=== PATIENT | female | born 2000 | race Caucasian/White ===

== ENCOUNTER 2023-02-07 20:43 | Emergency (ER) | payer OTHER ==
[2023-02-07] MEDS ORDERED: Ondansetron 4 MG/2 ML SDV IVPUSH ONE (20:59)
[2023-02-07] MEDS ORDERED: HYDROmorphone 0.5 MG/0.5 ML Syringe IVPUSH ONE (20:59)
[2023-02-07] MEDS ORDERED: Sodium Chloride 0.9% 10 ML Syringe FLUSH PRN (20:59)
[2023-02-07] MEDS ORDERED: Ibuprofen 600 MG Tab PO ONE (21:44)
[2023-02-07] MEDS ORDERED: Ondansetron 4 MG Tab.DIS PO ONE (21:48)
== END 2023-02-08 00:58 | disposition home or self-care (01) ==
LOC: JD.ED 20:43
DX: S52.502A Unspecified fracture of the lower end of left radius, initial encounter for closed fracture (principal); S52.612A Displaced fracture of left ulna styloid process, initial encounter for closed fracture; S61.412A Laceration without foreign body of left hand, initial encounter; F17.290 Nicotine dependence, other tobacco product, uncomplicated; Z86.16 Personal history of COVID-19; V80.010A Animal-rider injured by fall from or being thrown from horse in noncollision accident, initial encounter; Y92.410 Unspecified street and highway as the place of occurrence of the external cause
CPT/HCPCS: 29125; 70450; 72125; 73110; 73200; 99284; A9270

== ENCOUNTER 2024-10-30 18:04 | Emergency (ER) | payer OTHER ==
[2024-10-30] MEDS: Acetaminophen/oxyCODONE 325-5 MG Tab PO ONE (19:10)
[2024-10-30] MEDS: Ondansetron 4 MG Tab.DIS PO ONE (19:11)
[2024-10-30] MEDS: Ketorolac 30 MG/ML SDV IM ONE (20:57)
== END 2024-10-30 21:00 | disposition home or self-care (01) ==
LOC: JD.ED 18:04
DX: S90.31XA Contusion of right foot, initial encounter (principal); Z86.16 Personal history of COVID-19; W01.198A Fall on same level from slipping, tripping and stumbling with subsequent striking against other object, initial encounter
CPT/HCPCS: 70450; 72125; 73600; 73630; 96372; 99284; A9270; J1885

== ENCOUNTER 2025-03-23 22:25 | Emergency (ER) | payer OTHER | END 2025-03-23 23:54 | disposition home or self-care (01) | LOC: JD.ED 22:25 | DX: S62.617A Displaced fracture of proximal phalanx of left little finger, initial encounter for closed fracture (principal); Z86.16 Personal history of COVID-19; Z88.8 Allergy status to other drugs, medicaments and biological substances; W23.1XXA Caught, crushed, jammed, or pinched between stationary objects, initial encounter | CPT/HCPCS: 29125; 73140-26-F4; 73140-F4; 99283-25 ==